=== PATIENT | female | born 1965 | race Caucasian/White ===

== ENCOUNTER 2023-07-11 10:55 | Emergency (ER) | payer MEDICAID ==
[2023-07-11 11:17] LABS: BASOPHILS ABSOLUTE AUTO 0.01 10^3/uL (0.00-0.10); BASOPHILS PERCENT AUTO 0.1 % (0.0-1.0); EOSINOPHILS ABSOLUTE AUTO 0.16 10^3/uL (0.10-0.30); EOSINOPHILS PERCENT AUTO 2.2 % (1.0-3.0); HEMATOCRIT 44.8 % (37.0-47.0); HEMOGLOBIN 14.2 g/dL (12.0-16.0); IMMATURE GRAN ABSOLUTE AUTO 0.02 10^3/uL (0.00-0.50); IMMATURE GRAN PERCENT AUTO 0.3 % (0.0-5.0); LYMPHOCYTES ABSOLUTE AUTO 0.65 10^3/uL (1.00-4.00); LYMPHOCYTES PERCENT AUTO 9.1 % (20.0-40.0); MEAN CORPUSCULAR HEMOGLOBIN 29.8 pg (27.0-31.0); MEAN CORPUSCULAR HGB CONC 31.7 g/dL (32.0-36.0); MEAN CORPUSCULAR VOLUME 94.1 fL (82.0-92.0); MEAN PLATELET VOLUME 9.7 fL (7.4-10.4); MONOCYTES ABSOLUTE AUTO 0.68 10^3/uL (0.10-0.80); MONOCYTES PERCENT AUTO 9.5 % (2.0-8.0); NEUTROPHILS ABSOLUTE AUTO 5.63 10^3/uL (2.50-7.00); NEUTROPHILS PERCENT AUTO 78.8 % (50.0-70.0); PLATELET COUNT,PLT 99 10^3/uL (150-400); RED BLOOD CELL COUNT 4.76 10^6/uL (3.80-5.50); RED CELL DISTRIBUTION WIDTH 14.7 % (11.5-14.5); WHITE BLOOD CELL COUNT,WBC 7.15 10^3/uL (5.00-10.00)
[2023-07-11 11:27] LABS: BASE EXCESS ARTERIAL 8 mmol/L (-2-3); BICARBONATE,ARTERIAL 34.4 mmol/L (22-26); O2 DELIVERY DEVICE CPAP; O2 SATURATION ARTERIAL 94 % (95-98); PCO2 ARTERIAL 51 mmHG (35-45); PH,ARTERIAL 7.44 (7.35-7.45); PO2 ARTERIAL 71 mmHG (80-105)
[2023-07-11 11:29] LABS: ALBUMIN 2.67 g/dL (3.40-5.00); ANION GAP 8.4 mmol/L (5-15); BILIRUBIN TOTAL 0.7 mg/dL (0.2-1.0); CALCIUM 8.7 mg/dL (8.7-10.3); CARBON DIOXIDE,CO2 35.1 mmol/L (21.0-32.0); CREATININE 0.9 mg/dL (0.51-1.17); EST CRCL DRUG DOSING (CG) 62.8 mL/min; POTASSIUM,K 4.5 mmol/L (3.5-5.1); PROTEIN TOTAL,TP 6.9 g/dL (6.4-8.2)
[2023-07-11] MEDS ORDERED: Acetaminophen 650 MG Supp RECTAL ONE (11:48)
[2023-07-11 11:52] LABS: PROTHROMBIN TIME 10.6 SEC (9.2-11.2); PTT,PARTIAL THROMBOPLSTIN TIME 30.5 SEC (22.8-31.4)
[2023-07-11 12:12] LABS: APPEARANCE,URINE CLEAR (CLEAR); BILIRUBIN,URINE NEGATIVE (NEGATIVE); COLOR,URINE YELLOW (YELLOW); GLUCOSE,URINE NEGATIVE (NEGATIVE); KETONES,URINE NEGATIVE (NEGATIVE); LEUKOCYTE ESTERASE,URINE NEGATIVE (NEGATIVE); NITRITE,URINE NEGATIVE (NEGATIVE); OCCULT BLOOD,URINE TRACE-INTACT (NEGATIVE); PROTEIN,URINE NEGATIVE (NEGATIVE); UROBILINOGEN,URINE 0.2 E.U./dL (0.2-1.0)
[2023-07-11 12:21] LABS: BACTERIA,URINE OCCASIONAL /HPF (NONE TO FEW); EPITHELIAL CELLS,URINE RARE /LPF; RBC,URINE 0-5 /HPF (0-5); WBC,URINE 0-5 /HPF (0-5)
[2023-07-11] MEDS ORDERED: Furosemide 40 MG/4 ML VIAL IVPUSH ONE (12:21)
== END 2023-07-11 13:40 ==
LOC: KA.ED 10:55
DX: J96.21 Acute and chronic respiratory failure with hypoxia (principal); I26.99 Other pulmonary embolism without acute cor pulmonale; C83.30 Diffuse large B-cell lymphoma, unspecified site; Z88.8 Allergy status to other drugs, medicaments and biological substances
CPT/HCPCS: 36600; 51702; 71045; 80053; 81001; 82803; 83605; 83880; 84484; 85025; 85610; 85730; 93010; 96374; 99284; 99285; A9270; J1940; Q3014